=== PATIENT | male | born 1970 | race Hispanic/Latino ===

== ENCOUNTER 2025-01-09 00:06 | Emergency (ER) | payer SELFPAY ==
[2025-01-09 00:07] VITALS: BP 186/106; PULSE 76; RESP 18; TEMP 36.7; O2SAT 98; BMI 37.5
--- NOTE | 2025-01-09 01:49 | EDS_ITS ---
HPI History of Present Illness Chief Complaint: Med Refill Informant: patient Narrative Narrative: History of hypertension out of his lisinopril 40 mg. Has been out for 2 weeks. He moved here from [place] in October. Does not have established PCP. Awaiting for his benefits to kick in from his job. No headache chest pain abdominal pain. No nausea or vomiting. No urinary symptoms. [facility] Medical History Alcohol use Hypertension Home Medications ?Medication ?Instructions ?Recorded ?Last Taken ?Type allopurinol 100 mg tablet 100 mg PO DAILY 01/09/25 Unk nown History lisinopril 40 mg tablet 40 mg PO DAILY 01/09/25 Unkn own History lisinopril 40 mg tablet 40 mg PO DAILY #30 tabs 12/18 03/10 Unknown Rx Allergy/AdvReac Type Severity Reaction Status Date / Time No Known Allergies Allergy Verified 01/09/25 00:06 Social History Smoking Status: Never smoker ROS ROS ED Constitutional Constitutional ED: Denies chills, fever(s) or sweats ENT ENT ED: Denies sore throat Cardiovascular Cardiovascular: Denies chest pain, leg edema, palpitations or racing heartbeat Respiratory/Chest Respiratory/Chest: Denies cough, dyspnea or dyspnea on exertion Gastrointestinal Gastrointestinal: Denies abdominal pain, diarrhea, nausea or vomiting Genitourinary Genitourinary ED: Denies dysuria, hematuria or urinary frequency Musculoskeletal Musculoskeletal: Denies back pain, extremity pain or neck pain Integumentary Denies rash or wounds Neurologic Neurologic: Denies headache(s), paresthesias or weakness EXAM Physical Exam Const Vital Signs: 01/09/25 00:07 01/09/25 00:10 Temperature 98.1 F Temperature Source Oral Pulse Rate 76 Respiratory Rate 18 Respiratory Effort Normal Respiratory Pattern Normal Blood Pressure 186/106 H Blood Pressure Mean 132 Pulse Ox 98 Oxygen Delivery Method Room Air Positive well nourished and well developed General Appearance ED: well developed and NAD HEENT Reports moist mucous membranes normocephalic and atraumatic Eyes General Eye ED: Yes normal appearance of both eyes Neck full ROM Chest Wall Chest: Negative for tenderness Resp normal respiratory effort and normal air movement Effort and Inspection: symmetric chest movement; Negative for respiratory distress Cardio regular rate, regular rhythm and no murmurs Peripheral Pulses: pulses 2+ throughout GI normal to inspection, nondistended, normoactive bowel sounds and non-tender Palpation: Negative for guarding or rebound tenderness present Extremity normal to inspection General Extremety ED: Negative for edema or tenderness General Extremity: Negative for edema Neuro oriented x3 and no sensory deficits noted Sensorium / Orientation: awake and alert Skin no rashes or lesions noted and no wounds MDM MDM MDM Narrative Medical decision making narrative: Interventions / MDM: Differential diagnosis: History of hypertension, medication refill Diagnosis considered but do not suspect: No hypertensive emergency symptoms. My EKG interpretation: N/A Imaging independently reviewed and interpreted by myself: N/A External documents reviewed: N/A Test considered but not ordered:N/A ED course: Blood pressure 186/106 on arrival. Has been out medicines. Clinically asymptomatic. Doses 40 mg lisinopril in ED. Meds to bed. He is given follow-up as an outpatient. All questions were answered. Re-evaluation: stable Disposition discussed with patient/family/significant other: Patient Case discussed with consulting clinician: N/A This note was generated with Rate[employer] dictation software. It may contain incorrect words, spelling, and punctuation that were not noted in checking the note before signing. Discharge Plan Triage Chief Complaint: Med Refill ED Provider: Felipe Gibson Dx/Rx/DC Orders Clinical Impression: Hypertension, Medication refill Instructions: Hypertension Dc, Med Refill Prescriptions: New lisinopril 40 mg tablet 40 mg PO DAILY Qty: 30 0RF No Action lisinopril 40 mg tablet 40 mg PO DAILY allopurinol 100 mg tablet 100 mg PO DAILY Primary Care Provider: Care Physician,No Primary Referrals: Care Physician,No Primary [Primary Care Provider] - Joanne Fallon DO Misty [[facility]] - 1-2 Weeks Activity Restrictions/Additional Instructions: Follow-up outpatient with doctor for continued refills and recheck of your blood pressure. Print Language: Croatian Disposition Disposition: Home, Self Care
[2025-01-09] MEDS: Lisinopril 40 MG Tablet PO (01:57)
[2025-01-09 01:59] VITALS: BP 177/89; PULSE 76; RESP 18; TEMP 36.8; O2SAT 97
== END 2025-01-09 02:00 | disposition home or self-care (01) ==
LOC: ED 01:58
PROVIDERS: Emergency Provider Emergency Medicine; Visit Provider Emergency Medicine
DX: I10 Essential (primary) hypertension (principal); Z76.0 Encounter for issue of repeat prescription; Z79.899 Other long term (current) drug therapy
CPT/HCPCS: 99282; A4216

== ENCOUNTER → 2025-02-24 | Outpatient (CLI) | payer BC, SELFPAY ==
[2025-02-24 12:43] LABS: Absolute Lymphocyte Count 2.02 X10^3/uL (0.83-4.51); Absolute Neutrophil Count 3.5 X10^3/uL (2.0-7.7); Basophil# 0.05 X10^3/uL; Basophil% 0.8 % (0-1); Eosinophil# 0.31 X10^3/uL; Eosinophils% 4.7 % (0-5); Hematocrit 47.1 % (40-54); Hemoglobin 16.4 g/dL (13.0-16.5); Lymphocyte # 2.02 X10^3/ul (0.83-4.51); Lymphocyte % 30.6 % (19-41); Mean Corp Hgb Conc 34.8 g/dL (32-36); Mean Corpuscular Hgb 32.2 pg (27.0-32.0); Mean Corpuscular Volume 92.5 fL (80-94); Mean Platelet Vol. 10.8 fl (6.2-12.0); Monocyte# 0.74 X10^3/uL; Monocyte% 11.2 % (0-10); NRBC Flagged by Analyzer 0 % (0-5); Neutrophil # 3.48 X10^3/uL (2.7-7.7); Neutrophil % 52.5 % (47-70); Platelet Count 181 K/mm3 (150-450); RBC Distribution Width CV 13.4 % (11.6-14.6); RBC Distribution Width SD 45.5 fl (35.1-43.9); Red Blood Count 5.09 M/mm3 (4.6-6.2); White Blood Count 6.6 K/mm3 (4.4-11.0)
[2025-02-24 13:31] LABS: ALB/GLOB Ratio 1.4 RATIO (0.9-2.4); AST(SGOT) 26 U/L (<=37); Alanine Aminotransfer ALT/SGPT 28 U/L (<=46); Albumin, Serum 4.3 g/dL (3.5-5.0); Alkaline Phosphatase 75 U/L (40-129); Anion Gap 12 (5-15); BUN 11 mg/dL (4-19); BUN/Creat Ratio 14.2 RATIO (10-20); Calcium,Total 9.3 mg/dL (7.6-11.0); Chloride 104 mmol/L (98-108); Cholesterol 207 mg/dL (<=200); Creatinine, Serum 0.74 mg/dL (0.70-1.20); EST Glomerular Filtration Rate 107 (>60); Globulin 3.1 g/dL (2.2-4.2); Glucose 125 mg/dL (70-99); High Density Lipoprotein 55 mg/dL; Low Density Lipoprotein Calc. 139 mg/dL; PSA,Total - Annual Screen 0.77 ng/mL (0.02-4.00); Potassium 4.4 mmol/L (3.3-5.1); Protein, Total 7.4 g/dL (5.9-8.4); Sodium Level 137 mmol/L (133-145); Triglycerides 66 mg/dL; Very Low Density Lipoprotein 13 mg/dL (5-40)
[2025-02-24 14:27] LABS: Hemoglobin A1c 5.8 % (<=5.6)
== END | disposition home or self-care (01) ==
PROVIDERS: PCP Nurse Practitioner Family; Visit Provider Nurse Practitioner Family
DX: Z00.01 Encounter for general adult medical examination with abnormal findings (principal); Z12.5 Encounter for screening for malignant neoplasm of prostate; R73.01 Impaired fasting glucose
CPT/HCPCS: 36415; 80053; 80061; 83036; 84153; 85025; G0103

== ENCOUNTER 2025-05-08 17:17 | Emergency (ER) | payer SELFPAY ==
[2025-05-08 17:18] VITALS: BP 152/92; PULSE 87; RESP 14; TEMP 36.1; O2SAT 98; BMI 36.6
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
[2025-05-08 19:18] VITALS: BP 124/73; PULSE 70; RESP 12; O2SAT 96
[2025-05-08] MEDS: Diphth,Pertuss(Acell),Tet Vac 0.5 ML Vial IM (19:42)
[2025-05-08] MEDS: Lidocaine 1% /Epi 1:100 (20ml) 20 ML Vial INFILT (19:42)
[2025-05-08 21:00] VITALS: BP 120/72; PULSE 72; RESP 16; TEMP 37; O2SAT 99
== END 2025-05-08 21:08 | disposition home or self-care (01) ==
PROVIDERS: Emergency Provider Emergency Medicine; PCP Nurse Practitioner Family; Visit Provider Emergency Medicine
DX: S01.81XA Laceration without foreign body of other part of head, initial encounter (principal); V89.2XXA Person injured in unspecified motor-vehicle accident, traffic, initial encounter; I10 Essential (primary) hypertension; Y92.410 Unspecified street and highway as the place of occurrence of the external cause; Z23 Encounter for immunization
CPT/HCPCS: 12011; 90471; 90715; 99283